=== PATIENT | female | born 1950 | race Caucasian/White ===

== ENCOUNTER → 2018-10-03 | Outpatient (CLI) | payer MEDICARE | LOC: M.RAD 08:34 | DX: Z12.31 Encounter for screening mammogram for malignant neoplasm of breast (principal) ==

== ENCOUNTER → 2018-10-24 | Outpatient (CLI) | payer MEDICARE | LOC: M.RAD 13:00 | DX: Z13.820 Encounter for screening for osteoporosis (principal); Z78.0 Asymptomatic menopausal state ==

== ENCOUNTER → 2018-11-02 | Outpatient (CLI) | payer MEDICARE | LOC: M.LAB 04:41 | DX: E87.6 Hypokalemia (principal) ==

== ENCOUNTER → 2019-12-27 | Outpatient (CLI) | payer MEDICARE | LOC: M.RAD 09:51 | PROVIDERS: ATTEND Family Medicine | DX: Z12.31 Encounter for screening mammogram for malignant neoplasm of breast (principal) ==

== ENCOUNTER → 2020-01-02 | Outpatient (CLI) | payer MEDICARE | LOC: M.RAD 10:03 | PROVIDERS: ATTEND Family Medicine | DX: R92.2 Inconclusive mammogram (principal) ==

== ENCOUNTER → 2021-01-28 | Outpatient (CLI) | payer MEDICARE | LOC: M.RAD 09:01 | PROVIDERS: ATTEND Family Medicine | DX: Z12.31 Encounter for screening mammogram for malignant neoplasm of breast (principal) ==

== ENCOUNTER → 2021-02-17 | Outpatient (CLI) | payer MEDICARE | LOC: M.RAD 09:02 | PROVIDERS: ATTEND Family Medicine | DX: M85.88 Other specified disorders of bone density and structure, other site (principal); N95.9 Unspecified menopausal and perimenopausal disorder ==